=== PATIENT | male | born 1960 | race Caucasian/White ===

== ENCOUNTER 2024-06-26 22:36 | Inpatient (IN) | payer OTHER, SELFPAY ==
[2024-06-26] VITALS (12 sets, daily range): BP systolic 149–254; BP diastolic 81–143; BMI 30.6
[2024-06-26 18:42] LABS: % Basophils 0.5 % (0-2); % Eosinophils 1.2 % (0-6); % Immature Granulocytes 0.2 % (0-0.5); % Lymphocytes 10.9 % (20.5-51.1); % Monocytes 4.8 % (1.7-9.3); % Neutrophils 82.4 % (42.2-75.2); Absolute Eosinophils 0.1 10^3/uL (0-0.7); Absolute Lymphocytes 0.7 10^3/uL (1.2-3.4); Absolute Monocytes 0.3 10^3/uL (0.1-0.6); Absolute Neutrophils 5.3 10^3/uL (1.4-6.5); Hematocrit 38.5 % (39.0-52.0); Hemoglobin 13.7 g/dL (13.0-18.0); Mean Corp Hgb Conc. 35.6 g/dL (33.0-37.0); Mean Corpuscular Hgb 31.1 pg (27.0-31.0); Mean Corpuscular Volume 87.3 fL (80.0-94.0); Mean Platelet Volume 9.8 fL (7.4-10.4); Nucleated Red Blood Cells % 0 % (-); Platelet Count 185 10^3/uL (130-400); Red Blood Cell Count 4.41 10^6/uL (4.70-6.10); Red Cell Dist. Width 11.9 % (11.5-14.5); White Blood Cell Count 6.4 10^3/uL (4.8-10.8)
[2024-06-26 19:11] LABS: ALT (SGPT) 25 U/L (0-50); AST (SGOT) 26 U/L (17-59); Albumin 4.2 g/dl (3.5-5.0); Alkaline Phosphatase 86 U/L (38-126); Blood Urea Nitrogen 34 mg/dl (9-20); Calcium 9.1 mg/dl (8.4-10.2); Carbon Dioxide 27 mmol/L (22-30); Chloride 105 mmol/L (98-107); Glucose 104 mg/dl (70-99); Potassium 4.2 mmol/L (3.5-5.1); Sodium 142 mmol/L (135-145); Total Bilirubin 1.4 mg/dl (0.2-1.3); Total Protein 6.7 g/dl (6.3-8.2); eGFR 23.42
--- NOTE | 2024-06-26 19:12 | ED.GENMED ---
History of Present Illness
General
Chief Complaint: Breathing Problem
Source: patient
Exam Limitations: none
Time Seen by Provider: 06/26/24 18:41
History of Present Illness
History of Present Illness:
This is a 64 year old male that comes in with c/o feeling something in his chest this morning. States that he awoke at 3am and it was hard fro him to breath. States that his lungs were raspy. States that he had this before and when he got up it went
away. Today this seemed to last longer but then around 4:30-5am he felt better so he went to work. States that his calfs and feet have also been swelling lately. States that he is sitting all day. States that he feels nauseated and has a headache.
Denies any fever, chills, chest pain, abd pain, vomiting, diarrhea, dizziness, urinary burning.
Past History
Past History
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
Social History
Tobacco: Former smoker
Alcohol: Occasional
Personal:
Living: with family
Employment: Employed
Review of Systems
Review of Systems
All Other Systems: ROS reviewed and negative except as documented in HPI and ROS
Constitutional: Reports no symptoms; Denies fever or chills
EENT: Reports no symptoms
Respiratory: Reports trouble breathing; Denies cough
Cardiac: Reports no symptoms; Denies chest pain
ABD/GI: Reports nausea; Denies abdominal pain, vomiting or diarrhea
: Reports no symptoms; Denies dysuria, frequency or urgency
Musculoskeletal: Reports no symptoms
Skin: Reports no symptoms
Neurological: Reports headache; Denies dizzy
Psychiatric: Reports no symptoms
Phy Exam
General Physical Exam
General Presentation: no apparent distress
General age: appears stated age
General Skin: warm and dry
General Habitus: normal
General Mental: alert
General Hydration: dry mucous membranes
ENT Exam
ENT Exam: TM's normal, pharynx normal and neck supple
Eye Exam
Eye Exam: EOMI
Cardiovascular Exam
Cardiovascular Exam: regular rate/rhythm and normal peripheral pulses
Pulmonary Exam
Pulmonary Exam: lungs clear, no respiratory distress, no rales, chest non tender, no crackles, no rhonchi, no wheezing and no cough
Gastrointestinal Exam
Gastrointestinal Exam: normal bowel sounds, non tender, soft, no organomegaly, no pulsatile mass and non distended
Musculoskeletal Exam
Musculoskeletal Exam: full ROM and edema (+1 very slight pitting edema.)
Skin Exam
Skin Exam: normal color, warm/dry, no rash and no petechia
Psychiatric Exam
Psychiatric Exam: normal mood/affect
Scores
Heart Failure Risk
Heart Failure Risk Score: Not Applicable
Course
Orders/Labs/Results
Orders:
Orders
06/26/24 18:20
Electrocardiogram (*1) Urgent
Reason for Study: Shortness of Breath
CR Chest - 2 Views Urgent
Comment:
Reason For Exam: SOB
06/26/24 18:21
EKG- Treatment ONCE
06/26/24 18:29
Complete Blood Count/With Diff Urgent
Comprehensive Metabolic Panel Urgent
NT-proBNP Urgent
Troponin I Urgent
06/26/24 18:57
EKG [Electrocardiogram (*1)] Urgent
Reason for Study: Abnormal EKG
EKG- Treatment ONCE
06/26/24 19:08
Labetalol HCl [Trandate] 10 mg IV NOW STA
06/26/24 19:11
Amlodipine [Norvasc] 10 mg PO NOW STA
06/26/24 20:00
Labetalol HCl [Trandate] 10 mg IV NOW STA
06/26/24 20:02
Doxazosin Mesylate [Cardura] 8 mg PO NOW STA
06/26/24 21:26
Acetaminophen [Tylenol] 1,000 mg PO NOW STA
Nitroglycerin Ointment [Nitro-Bid] 1 inch TOPICAL NOW STA
06/26/24 21:29
Troponin I Urgent
06/26/24 21:51
Admit/Transfer Patient As Directed
Co-Sign Provider:
Level of Care: Inpatient admission
Assign to:: Telemetry
Physician / Group: Hospitalist
Diagnosis: Hypertensive crisis
Reason for Telemetry: Chest Pain syndromes
Date to Stop Telemetry: 06/28/24
Time to Stop Telemetry: 11:00
Reason for Hospitalization: Hypertensive crisis
Expected length of stay greater than two midnights?: Yes
ELOS- Estimated Length of Stay in days: 3
I certify the patient meets the requirements for IP care: Yes
PRN Pain Medication Management As Directed
May give lesser potent ordered pain med per pt: Yes
preference::
Protocol:: Medication orders for pain may be administered in a
manner that supports deferring to patient preference
when the pt is:
- Requesting an ordered lesser potent pain medication.
Least to most potent pain medications are defined
as: acetaminophen < NSAID < tramadol < opioids
(morphine, oxycodone, hydromorphone).
- Requesting a lesser dose of the same medication IF
ORDERED.
- Requesting a less intrusive route of administration
if both routes are prescribed by the provider (PO <
IV).
06/26/24 21:53
Code Status As Directed
Resuscitation Status: Full Code
06/26/24 22:00
Flush (0.9% Sodium Chloride) [Flush (Nss)] See Dose Instructions IV PER PROTOCOL
06/27/24 00:35
Electrocardiogram (*1) Q6H
Reason for Study: Chest Pain
Comment: at admission and Q3H for total of 3, to be done with each troponin
Doxazosin Mesylate [Cardura] 8 mg PO HS
Labetalol HCl [Trandate] 10 mg IV Q6HPRN PRN
06/27/24 00:35
Echo 2D MMode Color/Doppler Routine
Reason for Study: chest pain
CARDIOLOGY CONSULT Routine
Consulting Provider: Talat Ponce
Was physician already notified: No
Reason for consult: hypertensive emergency, elevated troponin
Consult Notification Routine
Specialty to Notify: Cardiology
Activity As Directed
Activity Level: With Assistance
INT (Intravenous Needle Therapy) As Directed
Comment: maintain peripheral IV access
Intake/ Output As Directed
Frequency: Per unit guidelines
Pneumatic Compression Sleeves As Directed
Type: Knee high
Vital Signs As Directed
Frequency: q4h
Weight As Directed
Frequency: Daily
DX Deep Vein Thrombosis Video Routine
06/27/24 00:54
Glycohemoglobin (HgbA1c) Routine
Troponin I Q3H
Comment: at admit & Q3H for 3 total including ED draws, obtain ECG with each level
06/27/24 03:35
Troponin I Q3H
Comment: at admit & Q3H for 3 total including ED draws, obtain ECG with each level
06/27/24 Breakfast
Cholesterol Lowering
At Your Request: Full Participation
Cholesterol Lowering: Sodium, 2 Gram
Complete Blood Count/No Diff IN AM
Comprehensive Metabolic Panel IN AM
US Renal Artery IN AM
Comment:
Reason For Exam: Hypertensive emergency
06/27/24 06:35
Electrocardiogram (*1) Q6H
Reason for Study: Chest Pain
Comment: at admission and Q3H for total of 3, to be done with each troponin
Troponin I Q3H
Comment: at admit & Q3H for 3 total including ED draws, obtain ECG with each level
06/27/24 08:00
Amlodipine [Norvasc] 10 mg PO DAILY
06/27/24 12:35
Electrocardiogram (*1) Q6H
Reason for Study: Chest Pain
Comment: at admission and Q3H for total of 3, to be done with each troponin
06/28/24 11:00
DC Protocol for Telemetry ONCE
Abnormal Lab Results
06/26/24 06/26/24
18:29 21:29
RBC 4.41 L 10^6/uL
(4.70-6.10)
Hct 38.5 L %
(39.0-52.0)
MCH 31.1 H pg
(27.0-31.0)
Absolute Lymphs (auto) 0.7 L 10^3/uL
(1.2-3.4)
Neutrophils % 82.4 H %
(42.2-75.2)
Lymphocytes % 10.9 L %
(20.5-51.1)
BUN 34 H mg/dl
(9-20)
Creatinine 2.9 H mg/dL
(0.7-1.3)
Glucose 104 H mg/dl
(70-99)
Total Bilirubin 1.4 H mg/dl
(0.2-1.3)
Troponin I 0.138 H* ng/ml 0.127 H* ng/ml
06/26/24 18:29
06/26/24 18:29
chronic renal insufficiency, Glucose nonfasting. Troponin elevated to 0.138 ( no other medication for comparison) , Pro-BNP 5250
Repeat Troponin 0.127
Vital Signs
Initial and Last Documented VS:
Initial Vital Signs
Temp Pulse Resp Pulse Ox
97.9 F 79 20 98
06/26/24 18:16 06/26/24 18:16 06/26/24 18:16 06/26/24 18:16
Last Documented Vital Signs
Temp Pulse Resp BP Pulse Ox
98.1 F 77 19 150/83 94
06/27/24 00:42 06/27/24 00:52 06/27/24 00:42 06/27/24 00:52 06/27/24 00:42
MDM/Problems Addressed
Differential Diagnosis Includes:
Hypertension, CHF
MDM/Problems Addressed:
This is a 64 year old male that comes in with c/o feeling like something rattling in his chest. States that he has ran out of his BP medication and he doesn't have a doctor right know. States that he is to see a Doctor on Tuesday.
will check labs. chest x-ray, will medicate for hypertension.
Repeat ECG: rate 73, NSR, Normal axis. Normal QRS, ST-T wave decreased in amplitude.
Back into see patient. Patient has been given IV Labetalol twice and given his medication that he would have normally taken at home and his BP remains elevated to 228/111. Will admit patient. hospitalist notified.
Chronic conditions affecting care: Kidney disease
Acute Exacerbation and/or Progression of Chronic Illness: Kidney disease
*Radiology
Radiology exam reviewed: preliminary read by ED provider (Chest- Negative for active disease. )
*Pulse Oximetry
Patient hypoxic: no
*EKG
Interpreted by ED Provider?: Yes
Heart Rate: 67
Rate: normal
Rhythm: sinus and PAC's
Hobbs: normal axis
Interval: normal interval
QRS Pattern: normal QRS
Ischemia: no ischemia
*Critical Care Note
Total Time (30-74mins, 75-104mins- exclusive of procedures): Not Applicable
ED Attending Note
-
Portions of this chart may have been created with voice recognition software.� Occasional wrong word or��sound alike� substitutions may have occurred due to the inherent limitations of voice recognition software.
Discharge Plan
Departure
Patient Disposition: Admit
Date of Disposition: 06/26/24
Time of Disposition: 20:56
Admit to: IMU
Presentation/result/management discussed w/ accepting MD/DO: Hospitalist
Patient with high blood pressure during this ER visit?: Yes
Condition: Good
Covid-19: Not Applicable
Discharge Problem:
Hypertensive crisis, Elevated troponin
Interventions
Interventions:
*Risk Screen - Suicide Last Done: 06/26/24 18:16
*General Assessment Last Done: 06/26/24 18:16
*Neglect/Abuse Screening Last Done: 06/26/24 18:16
ED- Fall Risk Assessment Last Done: 06/26/24 19:56
*ED COVID-19 Vaccine History Last Done: 06/26/24 19:55
*Nursing Disposition Last Done: 06/27/24 00:36
ED- Cardiac Assessment Last Done: 06/26/24 19:56
ED- Pulmonary Assessment Last Done: 06/26/24 19:56
Discharge Date and Time
Discharge Date/Time: 06/27/24 00:37
[2024-06-26 19:29] LABS: NT-proBNP 5250 pg/ml; Troponin I 0.138 ng/ml
[2024-06-26] MEDS: NORVASC 10 MG PO (19:47)
[2024-06-26] MEDS: TRANDATE 10 MG IV ×2 (19:48→21:34)
[2024-06-26] MEDS: CARDURA 8 MG PO (20:17)
--- NOTE | 2024-06-26 21:30 | HPS.HSE ---
Family Physician
-
Family Physician: NOT KNOW UNKNOWN - PT DOES
Chief Complaint
-
Respiratory difficulties
History of Present Illness
64 year old man came in c/o feeling something in his chest this morning. He awoke at 3am and had difficult breathing and felt that his lungs were raspy. He said that he had this before and on the past episode, when he got up it went away. Today this
episode seemed to last longer. Around 4:30-5am he felt better so he went to work. Today his calfs and feet were swollen. He has been sitting all day. When he came into the ED. he felt nauseated and has a headache. He denies fever, chills, chest
pain, abd pain, vomiting, diarrhea, dizziness, urinary burning. His BP when he came in was 248/119. Initial troponin was 0.138. He states that he has chronic kidney damage, but he does not know details. No previous visits in our system. He has
not taken his BP meds for several weeks.
Medical History
Past Medical History
Past Medical History: Reports Other
Additional Past Medical History:
Tonsilectomy,
Kidney surgery - 'aspergillus' (per patient) in kidney and they took a piece out
Essential HTN
Past Surgical History: Reports Other
Additional Past Surgical History:
See above
Social History
Alcohol: Occasional
Drug: None
Personal:
Living: With Family
Employment: Employed
Family History
Family History: Not pertinent
Allergies / Home Medications
Allergies reflects when Allergies were last updated in [employer].
Home Medications with original date entered in [employer]
Allergy/Medication List:
Allergies
Allergy/AdvReac Type Severity Reaction Status Date / Time
No Known Allergies Allergy Unverified 06/26/24 18:16
Home Medications
amlodipine 10 mg tablet 10 mg PO DAILY 06/26/24
doxazosin 4 mg tablet 8 mg PO HS 06/26/24
Review of Systems
-
History Source: Patient
A 12 point ROS was completed and negative except as noted: Yes
Physical Exam
Vital Signs
Vital Signs
Temp Pulse Resp BP Pulse Ox
97.9 F 68 20 248/119 96
06/26/24 18:16 06/26/24 20:17 06/26/24 20:00 06/26/24 20:17 06/26/24 20:15
Physical Exam
General: Well Developed, Well Nourished, No Apparent Distress, Comfortable, Conversant and Obese
HEENT: Nose Appears Normal and Ears Appear Normal
Respiratory: Clear
Cardiac: S1/S2 and Regular Rhythm
GI: Soft, Non Tender and Non Distended
Musculoskeletal: No Clubbing, No Cyanosis, Edema, Left Lower Extremity (trace) and Edema, Right Lower Extremity (trace)
Skin: Warm and Dry; No Rash
Neuro: Awake, Alert, Oriented and AO x 3
Psych: Calm
Laboratory Results
-
06/26/24 18:29
06/26/24 18:29
Laboratory Results
Total Bilirubin 1.4 mg/dl (0.2-1.3) H 06/26/24 18:29
AST 26 U/L (17-59) 06/26/24 18:29
ALT 25 U/L (0-50) 06/26/24 18:29
Alkaline Phosphatase 86 U/L (38-126) 06/26/24 18:29
Troponin I 0.138 ng/ml H* 06/26/24 18:29
Data Reviewed
-
Lab Data: Labs Reviewed by me
Impression/Plan
-
IMPRESSION:
64 man with hypertensive crisis, BP of 248/119 at initial eval. Significant findings:
BUN/Creat 34/2.9 (baseline not known)
TB 1.4
Troponin 0.138
PLAN:
1. Hypertensive crisis - improving. Oral BP meds started in ED, also nitro paste and labetalol given
Try to keep BP < 180 overnight, but does not need to get lower than 150
Use labetalol as needed while waiting for BP meds to work
Telemetry
Cycle troponins
2. BUN/Creat 34/2.9 - baseline not known
Try to find prior records
Recheck in am after BP is improved
Given that lungs are dry, will try other BP meds that are not diuretics
3. Total Bili 1.4 - cause not known, may be from congestion
Recheck in am, after BP is better controlled
4. Probable CHF, type not known, though diastolic is likely
Echo in am
5. Obesity - may exacerbate BP control
Outpatient follow up
Check for Diabetes
6. H/O kidney surgery
Check renal ultrasound
full code
VCD for DVTp
[2024-06-26 22:01] LABS: Troponin I 0.127 ng/ml
[2024-06-26] MEDS: TYLENOL 1000 MG PO (22:22)
[2024-06-26] MEDS: NITRO-BID 1 INCH TOPICAL (22:23)
[2024-06-27] VITALS (10 sets, daily range): BP systolic 133–163; BP diastolic 71–89; BMI 30.2
[2024-06-27] MEDS: CARDURA 8 MG PO ×2 (00:52→21:00)
[2024-06-27 01:54] LABS: Troponin I 0.109 ng/ml
[2024-06-27 04:47] LABS: Troponin I 0.093 ng/ml
[2024-06-27 06:38] LABS: Hematocrit 33.3 % (39.0-52.0); Hemoglobin 11.8 g/dL (13.0-18.0); Mean Corp Hgb Conc. 35.4 g/dL (33.0-37.0); Mean Corpuscular Hgb 30.9 pg (27.0-31.0); Mean Corpuscular Volume 87.2 fL (80.0-94.0); Mean Platelet Volume 9.8 fL (7.4-10.4); Platelet Count 167 10^3/uL (130-400); Red Blood Cell Count 3.82 10^6/uL (4.70-6.10); Red Cell Dist. Width 11.9 % (11.5-14.5); White Blood Cell Count 5.6 10^3/uL (4.8-10.8)
[2024-06-27 06:59] LABS: ALT (SGPT) 20 U/L (0-50); AST (SGOT) 22 U/L (17-59); Albumin 3.4 g/dl (3.5-5.0); Alkaline Phosphatase 65 U/L (38-126); Blood Urea Nitrogen 36 mg/dl (9-20); Calcium 8.5 mg/dl (8.4-10.2); Carbon Dioxide 25 mmol/L (22-30); Chloride 109 mmol/L (98-107); Estimated Creatinine Clearance 25 ml/min; Glucose 97 mg/dl (70-99); Potassium 3.9 mmol/L (3.5-5.1); Sodium 140 mmol/L (135-145); Total Bilirubin 1.4 mg/dl (0.2-1.3); Total Protein 5.6 g/dl (6.3-8.2); eGFR 23.42
[2024-06-27] MEDS: PROCARDIA XL (EXTENDED RELEASE) 60 MG PO (07:47)
--- NOTE | 2024-06-27 08:23 | CON.CAR ---
Addendum entered and electronically signed by Talat Ponce MD 06/27/24 10:19:
Patient seen and examined in collaboration with [facility] OPER[facility]; agree with below.
-65-year-old male with hypertension and CKD; admitted with hypertensive crisis.
-The patient ran out of his medications several weeks ago and has not followed up with his environmental services specialist in almost a decade.
-Echocardiogram today.
-Blood pressure improving; patient was changed from amlodipine to Procardia XL by primary hospitalist team.
-Continue current dose of doxazosin.
-Recommend Nephrology consultation as patient needs to reestablish care; his hypertension can likely just be managed by his primary hospitalist and [facility].
-Acute nonischemic myocardial injury in the setting of hypertensive crisis superimposed on CKD.
Original Note:
Consultation
Consultation Request
Date/Time Consultation Requested: 06/27/2434
Date/Time Consultation Performed: 06/27/24809
Requesting Provider: Dr. Obregon
Performing Provider: Quynh JANE for Dr. Ponce
Reason for Consultation: hypertensive emergency, abnormal troponin
Medical History
-
Chief Complaint: SOB
History of Present Illness:
64 y/o male with hypertension and kidney issues (unknown details, but per chart infection that required surgery) who is here for evaluation of waking up 2 nights ago with SOB and with raspy breathing sound- he felt better after about 1.5 hours. He
also has noticed some LE edema intermittently, but currently has none. He went to work and felt fine, but his suggested he come to the ER for evaluation. This also happened once a few weeks ago. On arrival, he was seen to be severely
hypertensive (240's-260's/110's-140's). He was given amlodipine 10 mg (home med that he ran out of) and doxazosin 8 mg (home med that he ran out of), as well as IV labetalol and topical nitroglycerin. BP has improved. Troponin is elevated 0.138,
then trended down. He denies any CP. Creatinine is 2.9- we don't know a baseline. EKG showed NSR with IC RBBB and evidence for LVH. ProBNP 5250, but no previous. Lungs clear and CXR without evidence for excess volume. He is in no distress at the
time of my assessment.
Past Medical History
Past Medical History: HTN and Other (kidney disease as above)
Social History
Tobacco: Former Smoker
Alcohol: Occasional
Drug: None
Family History
Family History: CAD (he thinks mom had WA at older age)
Allergies / Home Medications
Allergy/AdvReac Type Severity Reaction Status Date / Time
No Known Allergies Allergy Unverified 06/26/24 18:16
�Medication �Instructions �Recorded �Confirmed �Type
amlodipine 10 mg tablet 10 mg PO DAILY 06/26/24 06/26/24 History
doxazosin 4 mg tablet 8 mg PO HS 06/26/24 06/26/24 History
Review of Systems
-
History Source: Patient
All other systems: Negative unless noted
Respiratory: Trouble Breathing
Musculoskeletal: Edema
Physical Exam
Vital Signs
Temp Pulse Resp BP Pulse Ox
98 F 69 20 155/79 94
06/27/24 03:36 06/27/24 03:36 06/27/24 03:36 06/27/24 03:36 06/27/24 03:36
Lab Results
06/27/24 06:00
06/27/24 06:00
Troponin I Cancelled 06/27/24 06:35
Wgi-B-Fnqasnomebg Pept 5250 pg/ml 06/26/24 18:29
Physical Exam
General: Well Developed, Well Nourished and No Apparent Distress
HEENT: Normocephalic and Anicteric
Respiratory: Clear and Non Labored Respirations
Cardiac: Regular Rhythm
Musculoskeletal: No Edema
Skin: Warm and Dry
Neuro: AO x 3
Psych: Calm
Impression / Plan
-
Hypertensive emergency:
-this diagnosis is threat to life
-improving with medical therapy- now on Procardia, back on doxazosin- follow BP's with these changes
-we reviewed the importance of medication compliance and following up with medical providers
Abnormal troponin:
-denies any CP
-this is non-WA troponin elevation in setting of hypertensive emergency
-check echo, which is pending
Elevated creatinine:
-unknown baseline
-hx infection that required surgery, but details not know
-getting renal u/s this AM
-recommend nephrology c/s- he knows he needs to follow-up with nephro as OP as well- he has not recently seen
Obesity:
-would benefit from weight loss in the custodial
Elevated proBNP:
-in setting of abnormal renal function
-lungs clear, CXR no acute abnormalities
Data Reviewed
-
EKG: Tracing Personally Visualized and interpreted (SR with IC RBBB, LVH)
Radiology: Report Reviewed by me (CXR: No acute cardiopulmonary process.)
Medical Tests (Nuc Med, Echo etc): Other (ordered and pending)
Labs: Labs Reviewed by me
--- NOTE | 2024-06-27 10:07 | W.PN.HOSP.TC ---
Today's Communication/Plan
-
Adjust BP meds
Urinalysis, renal US
Add aspirin as secondary prevention
Add SQ heparin for DVT Prophylaxis
Monitor for urinary retention
will d/w nephrology
Assessment / Plan
Assessment / Plan
Physical Exam
General: Well Developed, Well Nourished, No Apparent Distress, Comfortable, Conversant and Obese
HEENT: Nose Appears Normal and Ears Appear Normal
Respiratory: Clear
Cardiac: S1/S2 and Regular Rhythm
GI: Soft, Non Tender and Non Distended
Musculoskeletal: No Clubbing, No Cyanosis, Edema, Left Lower Extremity (trace) and Edema, Right Lower Extremity (trace)
Skin: Warm and Dry; No Rash
Neuro: Awake, Alert, Oriented and AO x 3
Psych: Calm
#Hypertensive crisis -Resolved
- Primary hypertension, poorly controlled
We will stop amlodipine. Start the patient on nifedipine. Adjust medications as needed. Add as needed hydralazine.
Monitor blood pressure and adjust medications
#Acute nonischemic myocardial injury in the setting of hypertensive crisis superimposed on CKD.
No chest pain
Echocardiogram no wall motion abnormality
Appreciate cardiology input
# Suspect underlying chronic kidney disease stage IV
Patient has history of kidney disease but does not follow with v belt curer. He would like to establish care locally.
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
Stable 2.9. Will Control Blood Pressure.
Check urine analysis
Check renal ultrasound
Appreciate nephrology input
#Mild hyperbilirubinemia. No abdominal pain or nausea or vomiting
#Obesity - may exacerbate BP control
Hemoglobin A1c 5.4
full code
VCD for DVTp add subcu heparin
Total time spent to see the patient, examine the patient on the floor, review data and lab results, discuss the treatment plan with the patient, family, nursing staff around 55 minutes
Anticipated Discharge: 24 - 48 hours
Subjective/Interval History
-
Date of Service: June 27, 2024
No chest pain
No sob
Objective Data
-
Labs:
Laboratory Results
06/27/24
06:00
WBC 5.6
Hgb 11.8 L
Hct 33.3 L
Plt Count 167
Sodium 140
Potassium 3.9
Chloride 109 H
Carbon Dioxide 25
BUN 36 H
Creatinine 2.9 H
Glucose 97
Calcium 8.5
Total Bilirubin 1.4 H
AST 22
ALT 20
Alkaline Phosphatase 65
Vital Signs:
Vital Signs
Temp Pulse Resp BP Pulse Ox
97.7 F 74 18 163/89 93
06/27/24 07:30 06/27/24 07:30 06/27/24 07:30 06/27/24 07:30 06/27/24 08:00
I&O
06/26/24 06/27/24 06/28/24
06:59 06:59 06:59
Intake Total 0 / 0
Balance 0 / 0
[2024-06-27 11:32] LABS: Glycohemoglobin (HgbA1c) 5.4 % (4.0-5.6)
--- NOTE | 2024-06-27 12:39 | W.CON.NEPH ---
Consultation
-
Date/Time Consultation Requested: 06/27/24 1200p
Date/Time Consultation Performed: 06/27/24 1200p
Requesting Provider: Dr. Thompson
Performing Provider: Dr Nettles
Reason for Consultation: CKD unknown stage
Medical History
-
Chief Complaint: Chest discomfort
History of Present Illness:
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 It appears that he may have had fungal balls. These were reportedly the drained for diagnosis. He then was on
what appears to be a course of voriconazole by his memory. This did not appear to change the aspergillosis. He believes that his kidney function had otherwise stabilized. He was then lost to follow-up from a nephrologic standpoint. He does not
recall what his last creatinine was. He believes that his primary may have told him recently that his creatinine was increasing but does not recall the numbers. He does have hypertension which is typically controlled on a multidrug regimen but he
has not been on medicines for a few weeks though on admission was noted to be in hypertensive urgency. This was controlled with intravenous medications. He also reports that he has been feeling weaker over the last several weeks. He also believes
that he has had more foaminess in his urine.
Past Medical History
Aspergillosis bilateral kidneys, tonsillectomy, hypertension
Social History
Tobacco: Former Smoker
Alcohol: Occasional
Family History
Family History: Not Pertinent
Allergies / Home Medications
Allergy/AdvReac Type Severity Reaction Status Date / Time
No Known Allergies Allergy Unverified 06/26/24 18:16
�Medication �Instructions �Recorded �Confirmed �Type
amlodipine 10 mg tablet 10 mg PO DAILY Blood Pressure 06/26/24 06/26/24 History
doxazosin 4 mg tablet 8 mg PO HS Blood Pressure 06/26/24 06/26/24 History
Review of Systems
-
Chest discomfort, weakness
All other systems: Negative unless noted
Physical Exam
Vital Signs
Vital Signs
Temp Pulse Resp BP Pulse Ox
98.4 F 85 18 139/72 94
06/27/24 11:18 06/27/24 11:18 06/27/24 11:18 06/27/24 11:18 06/27/24 11:18
Lab Results
WBC 5.6 10^3/uL (4.8-10.8) 06/27/24 06:00
RBC 3.82 10^6/uL (4.70-6.10) L 06/27/24 06:00
Hgb 11.8 g/dL (13.0-18.0) L 06/27/24 06:00
Hct 33.3 % (39.0-52.0) L 06/27/24 06:00
Plt Count 167 10^3/uL (130-400) 06/27/24 06:00
Sodium 140 mmol/L (135-145) 06/27/24 06:00
Potassium 3.9 mmol/L (3.5-5.1) 06/27/24 06:00
Chloride 109 mmol/L (98-107) H 06/27/24 06:00
Carbon Dioxide 25 mmol/L (22-30) 06/27/24 06:00
BUN 36 mg/dl (9-20) H 06/27/24 06:00
Creatinine 2.9 mg/dL (0.7-1.3) H 06/27/24 06:00
eGFR 23.42 06/27/24 06:00
Glucose 97 mg/dl (70-99) 06/27/24 06:00
Calcium 8.5 mg/dl (8.4-10.2) 06/27/24 06:00
Wqp-E-Ytsdywmylsh Pept 5250 pg/ml 06/26/24 18:29
Albumin 3.4 g/dl (3.5-5.0) L 06/27/24 06:00
Physical Exam
Patient is awake alert oriented and in no distress. Mood and affect were pleasant, insight and judgment were good. Pupils are equal round and reactive to light, extraocular movements are intact, sclera were anicteric. Hearing was normal, ears and
nose are intact. Oropharynx was clear. Neck was supple with trachea midline and no thyromegaly. Heart was regular rate and rhythm without rubs. Lower extremities without edema. Lungs were clear to auscultation bilaterally and with normal
excursion. Abdomen was soft, nontender, with normal active bowel sounds, and no hepatosplenomegaly. Skin was without rash and with normal turgor.
Data Reviewed
-
Radiology: Image Personally Visualized and interpreted (Chest x-ray on June 26, 2024 by my reading shows no acute disease)
Ultrasound: Report Reviewed by me (Renal artery duplex on June 27, 2024 shows right kidney 9.8 cm, left kidney 9.4 cm, no significant renal artery stenosis)
Medical Tests (Nuc Med, Echo etc): Image Personally Visualized and interpreted (EKG on June 27, 2024 by my reading shows sinus rhythm incomplete right bundle branch block) and Report Reviewed by me (Echocardiogram on June 27, 2024 shows
ejection fraction 65% normal valves)
Labs: Labs Reviewed by me
Old Records: Requested
Assessment/Plan
-
Assessment
Hypertension/hypertensive urgency
HALINA
CKD stage unknown
Weakness
Elevated troponin
Plan
Elevated troponin likely from hypertensive urgency
Blood pressure is much improved on his outpatient regimen
Urinalysis pending
Renal ultrasound pending though duplex suggests symmetric kidneys. Ultrasound will hopefully show any sequelae of bilateral aspergillosis
Further evaluation pending urinalysis
Obtain records for older creatinines
[2024-06-27 14:42] LABS: Urine Albumin 3+ (Neg - Trace); Urine Bilirubin Negative (Negative); Urine Character Clear (Clear); Urine Color Yellow; Urine Glucose Negative (Negative); Urine Ketone Negative (Negative); Urine Leukocyte Negative (Negative); Urine Nitrite Negative (Negative); Urine Occult Blood Negative (Negative); Urine Urobilinogen Negative (Neg - 1+)
[2024-06-27 14:58] LABS: Urine Amorphous Seen; Urine Mucus Few
[2024-06-27 15:00] LABS: Urine Red Blood Cell 0-2 /HPF (0-2); Urine White Cell 0-2 /HPF (0-5)
--- NOTE | 2024-06-27 15:09 | CM ---
CM met with pt and yamile/Cindi
Pt resides with his spouse and mother in a 2SH with 1 NACHO
First floor set up
Pt is independent with his ADLs- denies use of DMEs
Works FT plus overtime operating heavy equipment
No financial insecurities
PCP- none, has new pt appt scheduled for 07/02 set up by his spouse, name of new PCP unknown
Leah- Norma Nichols
Discharge Disposition- home, likely no needs
[2024-06-28] VITALS (7 sets, daily range): BP systolic 135–179; BP diastolic 72–93; BMI 29.9
[2024-06-28] MEDS: APRESOLINE 5 MG PO (03:47)
[2024-06-28] MEDS: PROCARDIA XL (EXTENDED RELEASE) 60 MG PO (06:30)
[2024-06-28 07:31] LABS: Blood Urea Nitrogen 42 mg/dl (9-20); Calcium 8.7 mg/dl (8.4-10.2); Carbon Dioxide 25 mmol/L (22-30); Chloride 108 mmol/L (98-107); Estimated Creatinine Clearance 24 ml/min; Glucose 92 mg/dl (70-99); Potassium 4.5 mmol/L (3.5-5.1); Sodium 144 mmol/L (135-145); eGFR 21.62
--- NOTE | 2024-06-28 08:08 | W.PN.CD ---
Today's Communication / Plan
-
-Blood pressure improved, but remains suboptimally controlled.
-Will add Imdur 30 mg PO daily and hydralazine 25 mg PO BID (BID dosing will be used for now to try to improve patient compliance, at home as opposed to TID dosing).
-Continue Procardia XL 60 mg daily.
-Continue doxazosin 8 mg daily.
-Echocardiogram yesterday with normal LVEF and no significant valvulopathy.
Impression / Plan
-
Hypertensive emergency:
-Blood pressure improved, but remains suboptimally controlled.
-Will add Imdur 30 mg PO daily and hydralazine 25 mg PO BID (BID dosing will be used for now to try to improve patient compliance, at home as opposed to TID dosing).
-Continue Procardia XL 60 mg daily.
-Continue doxazosin 8 mg daily.
Abnormal troponin:
-Acute non-ischemic myocardial injury in the setting of hypertensive emergency.
-Echocardiogram yesterday with normal LVEF and no significant valvulopathy.
Elevated creatinine:
-unknown baseline
-hx infection that required surgery, but details not know
-Nephrology now following.
Obesity:
-Weight loss recommended.
Elevated proBNP:
-in setting of abnormal renal function
-lungs clear, CXR no acute abnormalities
Physical Exam
Vital Signs/Labs
Vital Signs
Temp Pulse Resp BP Pulse Ox
98.4 F 86 20 172/90 97
06/28/24 03:43 06/28/24 06:30 06/28/24 03:43 06/28/24 06:30 06/28/24 03:43
06/27/24 06/28/24 06/29/24
06:59 06:59 06:59
Actual Weight 82.27 kg 81.42 kg
06/27/24 06:00
06/28/24 05:55
06/26/24
18:29
Qjm-J-Ztciovyaddx Pept 5250
LAB Results
06/26/24 06/26/24 06/27/24
18:29 21:29 00:54
Troponin I 0.138 H* 0.127 H* 0.109 H*
06/27/24 06/27/24
04:14 06:35
Troponin I 0.093 H* Cancelled
Physical Exam
Constitutional: No acute distress and Comfortable
EENT: Anicteric
Cardiovascular: Rhythm & rate is regular, Pedal edema is absent, Systolic murmur absent and S1S2 is normal
Respiratory: Respiratory effort normal and Lungs clear to auscul.
GI: Soft
Neuro/Psych: AO x 3
Other: Skin (Warm, dry, intact)
Data Reviewed
-
Date of Service: June 28, 2024
EKG: Tracing Personally Visualized and interpreted (Telemetry: Sinus rhythm)
Echo: Report Reviewed by me ( LVEF 65-70%; no significant valve disease)
Labs: Labs Reviewed by me
[2024-06-28] MEDS: LOW STRENGTH ASPIRIN 81 MG PO (08:45)
[2024-06-28] MEDS: APRESOLINE 25 MG PO ×2 (08:45→20:31)
[2024-06-28] MEDS: IMDUR (EXTENDED RELEASE) 30 MG PO (08:45)
[2024-06-28] MEDS: PROCARDIA XL (EXTENDED RELEASE) 30 MG PO (08:47)
--- NOTE | 2024-06-28 10:52 | W.PN.NEPH.PH ---
Today's Communication / Plan
-
Up/c
Assessment/Plan
-
Assessment
Hypertension/hypertensive urgency
HALINA
CKD stage unknown
Weakness
Elevated troponin
Plan
continue BP meds as is
check urine prot/creat ratio
mildly asymmetric kidneys, though does not explain current function
await records for older creatinines
-
-
Date of Service: June 28, 2024
CC / HPI / ROS
-
Chief Complaint:
HALINA
History of Present Illness:
HALINA/Cr stable 3.1
BP high stable
protein in urinalysis
Review of Systems:
no CP/SOB
Labs
-
Labs:
WBC 5.6 10^3/uL (4.8-10.8) 06/27/24 06:00
RBC 3.82 10^6/uL (4.70-6.10) L 06/27/24 06:00
Hgb 11.8 g/dL (13.0-18.0) L 06/27/24 06:00
Hct 33.3 % (39.0-52.0) L 06/27/24 06:00
Plt Count 167 10^3/uL (130-400) 06/27/24 06:00
Sodium 144 mmol/L (135-145) 06/28/24 05:55
Potassium 4.5 mmol/L (3.5-5.1) 06/28/24 05:55
Chloride 108 mmol/L (98-107) H 06/28/24 05:55
Carbon Dioxide 25 mmol/L (22-30) 06/28/24 05:55
BUN 42 mg/dl (9-20) H 06/28/24 05:55
Creatinine 3.1 mg/dL (0.7-1.3) H 06/28/24 05:55
eGFR 21.62 06/28/24 05:55
Glucose 92 mg/dl (70-99) 06/28/24 05:55
Calcium 8.7 mg/dl (8.4-10.2) 06/28/24 05:55
Nrf-H-Tvuuhrdkltz Pept 5250 pg/ml 06/26/24 18:29
Albumin 3.4 g/dl (3.5-5.0) L 06/27/24 06:00
Physical Exam
-
Vital Signs:
Vital Signs
Temp Pulse Resp BP Pulse Ox
98 F 89 18 179/91 97
06/28/24 08:41 06/28/24 08:45 06/28/24 08:41 06/28/24 08:45 06/28/24 08:41
Cardiovascular:: Regular rate and rhythm
Respiratory:: Bilateral: CTA
Lung Excursion:: Normal
Abdomen:: Nontender and Soft
Bowel Sounds:: Normal
Extremity Edema:: None: Bilateral:
--- NOTE | 2024-06-28 11:40 | CM ---
Nephrology and cardiology involved.
Independent FUNERAL SERVICE PRACTITIONER/EMBALMER.
Declined VN at dc.
PLAN Home no anticipated needs
--- NOTE | 2024-06-28 12:16 | W.PN.HOSP.TC ---
Today's Communication/Plan
-
Check BMP
Adjust meds as needed
Assessment / Plan
Assessment / Plan
Physical Exam
General: Well Developed, Well Nourished, No Apparent Distress, Comfortable, Conversant and Obese
HEENT: Nose Appears Normal and Ears Appear Normal
Respiratory: Clear
Cardiac: S1/S2 and Regular Rhythm
GI: Soft, Non Tender and Non Distended
Musculoskeletal: No Clubbing, No Cyanosis, Edema, Left Lower Extremity (trace) and Edema, Right Lower Extremity (trace)
Skin: Warm and Dry; No Rash
Neuro: Awake, Alert, Oriented and AO x 3
Psych: Calm
#Hypertensive crisis -Resolved
- Primary hypertension, poorly controlled
Still uncontrolled earlier today
Stopped Amlodipine. Started the patient on nifedipine. Adjust medications as needed. Added BID hydralazine with Imdur.
Monitored blood pressure and adjust medications
#Acute nonischemic myocardial injury in the setting of hypertensive crisis superimposed on CKD.
No chest pain
Echocardiogram no wall motion abnormality
Appreciate cardiology input
# Suspect underlying chronic kidney disease stage IV
Creatinine went up to 3.1 from 2.9
Patient has history of kidney disease but does not follow with can sorter. He would like to establish care locally.
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
Urine analysis showed + albumin
Renal ultrasound Showed asymmetric left renal cortical atrophy. Generalized renal cortical echotexture, suggesting underlying medical renal disease. No shadowing calculus or hydronephrosis, bilaterally.
Appreciate nephrology input
#Mild hyperbilirubinemia. No abdominal pain or nausea or vomiting
#Obesity - may exacerbate BP control
Hemoglobin A1c 5.4
full code
VCD for DVTp add subcu heparin
Total time spent to see the patient, examine the patient on the floor, review data and lab results, discuss the treatment plan with the patient, family, nursing staff around 55 minutes
Anticipated Discharge: Within 24 hours
Subjective/Interval History
-
Date of Service: June 28, 2024
No chest pain
No sob
Objective Data
-
Labs:
Laboratory Results
06/28/24
05:55
Sodium 144
Potassium 4.5
Chloride 108 H
Carbon Dioxide 25
BUN 42 H
Creatinine 3.1 H
Glucose 92
Calcium 8.7
Vital Signs:
Vital Signs
Temp Pulse Resp BP Pulse Ox
98 F 97 18 135/72 97
06/28/24 12:00 06/28/24 12:00 06/28/24 12:00 06/28/24 12:00 06/28/24 12:00
I&O
06/27/24 06/28/24 06/29/24
06:59 06:59 06:59
Intake Total 0 / 0 900 / 900
Balance 0 / 0 900 / 900
[2024-06-28 15:59] LABS: Protein/creatinine Ratio 3.7; Urine Protein 1073 mg/dl
[2024-06-28] MEDS: CARDURA 8 MG PO (20:32)
[2024-06-29] VITALS (9 sets, daily range): BP systolic 138–194; BP diastolic 67–100; PULSE 71–96; BMI 31.0
[2024-06-29 05:36] LABS: Blood Urea Nitrogen 50 mg/dl (9-20); Calcium 8.7 mg/dl (8.4-10.2); Carbon Dioxide 26 mmol/L (22-30); Chloride 106 mmol/L (98-107); Estimated Creatinine Clearance 22 ml/min; Glucose 92 mg/dl (70-99); Potassium 4.5 mmol/L (3.5-5.1); Sodium 141 mmol/L (135-145); eGFR 20.06
[2024-06-29] MEDS: PROCARDIA XL (EXTENDED RELEASE) 90 MG PO (07:27)
[2024-06-29] MEDS: LOW STRENGTH ASPIRIN 81 MG PO (07:28)
[2024-06-29] MEDS: APRESOLINE 25 MG PO ×3 (07:28→21:19)
[2024-06-29] MEDS: IMDUR (EXTENDED RELEASE) 30 MG PO (07:28)
--- NOTE | 2024-06-29 09:10 | W.PN.HOSP.TC ---
Today's Communication/Plan
-
f/w nephrology recommendation
Check orthostatic Bp
Assessment / Plan
Assessment / Plan
Physical Exam
General: Well Developed, Well Nourished, No Apparent Distress, Comfortable, Conversant and Obese
HEENT: Nose Appears Normal and Ears Appear Normal
Respiratory: Clear
Cardiac: S1/S2 and Regular Rhythm
GI: Soft, Non Tender and Non Distended
Musculoskeletal: No Clubbing, No Cyanosis, Edema, Left Lower Extremity (trace) and Edema, Right Lower Extremity (trace)
Skin: Warm and Dry; No Rash
Neuro: Awake, Alert, Oriented and AO x 3
Psych: Calm
#Hypertensive crisis -Resolved
- Primary hypertension, poorly controlled in OP setting
Still uncontrolled earlier today but seems to improve with meds. He had Sinus tachy upon ambulation, EKG SR, will check orthostatic bp
Stopped Amlodipine. Started the patient on nifedipine. Adjust medications as needed. Added BID hydralazine with Imdur.
Monitored blood pressure and adjust medications
#Acute nonischemic myocardial injury in the setting of hypertensive crisis superimposed on CKD.
No chest pain
Echocardiogram no wall motion abnormality
Appreciate cardiology input
# Suspect underlying chronic kidney disease stage IV
Creatinine went up to 3.3 from 2.9
Creatinine 1.7 in 2021
Patient has history of kidney disease but does not follow with gaming associate. He would like to establish care locally.
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
Urine analysis showed + albumin
Renal ultrasound Showed asymmetric left renal cortical atrophy. Generalized renal cortical echotexture, suggesting underlying medical renal disease. No shadowing calculus or hydronephrosis, bilaterally.
Appreciate nephrology input
#Mild hyperbilirubinemia. No abdominal pain or nausea or vomiting
#Obesity - may exacerbate BP control
Hemoglobin A1c 5.4
full code
VCD for DVTp add subcu heparin
Total time spent to see the patient, examine the patient on the floor, review data and lab results, discuss the treatment plan with the patient, family, nursing staff around 55 minutes
Anticipated Discharge: 24 - 48 hours
Subjective/Interval History
-
Date of Service: June 29, 2024
No chest pain
No sob
Objective Data
-
Labs:
Laboratory Results
06/29/24
04:29
Sodium 141
Potassium 4.5
Chloride 106
Carbon Dioxide 26
BUN 50 H
Creatinine 3.3 H
Glucose 92
Calcium 8.7
Vital Signs:
Vital Signs
Temp Pulse Resp BP Pulse Ox
97.8 F 89 18 165/92 98
06/29/24 07:10 06/29/24 07:10 06/29/24 07:10 06/29/24 08:18 06/29/24 07:10
I&O
06/28/24 06/29/24 06/30/24
06:59 06:59 06:59
Intake Total 900 / 900
Balance 900 / 900
--- NOTE | 2024-06-29 11:25 | W.PN.NEPH.PH ---
Today's Communication / Plan
-
Hold aspirin
Prepare for renal biopsy early next week
Titrate up hydralazine to 3 times daily
Assessment/Plan
-
Assessment
Hypertension/hypertensive urgency
HALINA
CKD stage unknown
Weakness
Elevated troponin
Plan
continue BP meds as is
Creatinine up to 3.3
check urine prot/creat ratio: 3.7grams
mildly asymmetric kidneys, though does not explain current function
Records from May 2023 reviewed: Creatinine was 1.75 with urinalysis of 3+ proteinuria
Underlying kidney disease is rapidly advancing
I will obtain serologies but plan on renal biopsy early next week
We will suspend aspirin
Case discussed with patient
-
-
Date of Service: June 29, 2024
CC / HPI / ROS
-
Chief Complaint:
HALINA
History of Present Illness:
HALINA/Cr up to 3.3
BP high stable
3.7 g of proteinuria
Review of Systems:
no CP/SOB
Nonoliguric
Labs
-
Labs:
WBC 5.6 10^3/uL (4.8-10.8) 06/27/24 06:00
RBC 3.82 10^6/uL (4.70-6.10) L 06/27/24 06:00
Hgb 11.8 g/dL (13.0-18.0) L 06/27/24 06:00
Hct 33.3 % (39.0-52.0) L 06/27/24 06:00
Plt Count 167 10^3/uL (130-400) 06/27/24 06:00
Sodium 141 mmol/L (135-145) 06/29/24 04:29
Potassium 4.5 mmol/L (3.5-5.1) 06/29/24 04:29
Chloride 106 mmol/L (98-107) 06/29/24 04:29
Carbon Dioxide 26 mmol/L (22-30) 06/29/24 04:29
BUN 50 mg/dl (9-20) H 06/29/24 04:29
Creatinine 3.3 mg/dL (0.7-1.3) H 06/29/24 04:29
eGFR 20.06 06/29/24 04:29
Glucose 92 mg/dl (70-99) 06/29/24 04:29
Calcium 8.7 mg/dl (8.4-10.2) 06/29/24 04:29
Wqw-V-Mryafdqbqcn Pept 5250 pg/ml 06/26/24 18:29
Albumin 3.4 g/dl (3.5-5.0) L 06/27/24 06:00
Physical Exam
-
Vital Signs:
Vital Signs
Temp Pulse Resp BP Pulse Ox
97.8 F 78 20 154/83 98
06/29/24 11:17 06/29/24 11:17 06/29/24 11:17 06/29/24 11:17 06/29/24 11:17
Cardiovascular:: Regular rate and rhythm
Respiratory:: Bilateral: CTA
Lung Excursion:: Normal
Abdomen:: Nontender and Soft
Bowel Sounds:: Normal
Extremity Edema:: None: Bilateral:
--- NOTE | 2024-06-29 17:16 | CM ---
Not ready for dc.
Set up kidney bx Tuesday.
Changed BP meds.
PLAN Home declined VN
[2024-06-29] MEDS: CARDURA 8 MG PO (21:18)
[2024-06-30] VITALS (9 sets, daily range): BP systolic 128–198; BP diastolic 68–104; BMI 31.0
[2024-06-30] MEDS: APRESOLINE 5 MG IV (00:28)
[2024-06-30 06:00] LABS: Blood Urea Nitrogen 45 mg/dl (9-20); Calcium 8.7 mg/dl (8.4-10.2); Carbon Dioxide 25 mmol/L (22-30); Chloride 105 mmol/L (98-107); Estimated Creatinine Clearance 24 ml/min; Glucose 89 mg/dl (70-99); Potassium 4.4 mmol/L (3.5-5.1); Sodium 140 mmol/L (135-145); eGFR 21.62
[2024-06-30] MEDS: IMDUR (EXTENDED RELEASE) 30 MG PO (07:39)
[2024-06-30] MEDS: PROCARDIA XL (EXTENDED RELEASE) 90 MG PO (07:39)
[2024-06-30] MEDS: APRESOLINE 25 MG PO ×3 (07:40→22:09)
--- NOTE | 2024-06-30 09:47 | W.PN.CD ---
Today's Communication / Plan
-
-
Defer further HTN management to nephrology
Will ask pt to see Dr. Ponce in follow up to consider outpatient stress test
Cardiology will sign off. Our office will reach out to patient
Impression / Plan
-
HTN emergency, severe HTN on admit
- BP still elevated, but improving
- Meds limited by significant CKD
- Will defer to nephrology about adding diuretic, MRA or RAAS inhibitor for additional BP control
Elevated troponin, peak 0.138 (admit trop)
- from non-ischemic myocardial injury in the setting of hypertensive emergency and renal insuf
- Echo with normal LVEF and no significant valvulopathy and EKG without changes of UT
Progressive CKD with proteinuria
Obesity, BMI 31 kg
Elevated proBNP, 5250, associated with renal insuf
- Had dyspnea on admit with severe HTN
- Stage 1 diastolic dysfxn
- Certainly at risk for HFpEF
Subjective:
No CP or dyspnea
Physical Exam
Vital Signs/Labs
Vital Signs
Temp Pulse Resp BP Pulse Ox
97.6 F 82 18 167/96 97
06/30/24 08:07 06/30/24 08:07 06/30/24 08:07 06/30/24 08:07 06/30/24 08:07
06/29/24 06/30/24 07/01/24
06:59 06:59 06:59
Actual Weight 84.425 kg 84.368 kg
06/27/24 06:00
06/30/24 04:20
PT 13.0 Sec (11.4-14.6) 06/30/24 04:20
INR 1.00 06/30/24 04:20
06/26/24
18:29
Wkj-M-Nddpbpprsnv Pept 5250
Physical Exam
Constitutional: No acute distress
EENT: Anicteric
Cardiovascular: Rhythm & rate is regular and Pedal edema is absent
Respiratory: Respiratory effort normal and Lungs clear to auscul.
GI: Soft and Distention absent
Neuro/Psych: AO x 3
Data Reviewed
-
Date of Service: June 30, 2024
--- NOTE | 2024-06-30 10:18 | W.PN.HOSP.TC ---
Today's Communication/Plan
-
Add Coreg
Would avoid checking vital during the night to let pt sleep
Assessment / Plan
Assessment / Plan
Physical Exam
General: Well Developed, Well Nourished, No Apparent Distress, Comfortable, Conversant and Obese
HEENT: Nose Appears Normal and Ears Appear Normal
Respiratory: Clear
Cardiac: S1/S2 and Regular Rhythm
GI: Soft, Non Tender and Non Distended
Musculoskeletal: No Clubbing, No Cyanosis, Edema, Left Lower Extremity (trace) and Edema, Right Lower Extremity (trace)
Skin: Warm and Dry; No Rash
Neuro: Awake, Alert, Oriented and AO x 3
Psych: Calm
#Hypertensive crisis -Resolved
- Primary hypertension, poorly controlled in OP setting
Still uncontrolled earlier today but seems to improve with meds. 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
Stopped Amlodipine. Started the patient on nifedipine.
C/W BID hydralazine with Imdur.
Monitored blood pressure and adjust medications
#Acute nonischemic myocardial injury in the setting of hypertensive crisis superimposed on CKD.
No chest pain
Echocardiogram no wall motion abnormality
Appreciate cardiology input
# Suspect underlying chronic kidney disease stage IV
Creatinine at 3.1 , seems stable in last 24 hours.
Creatinine 1.7 in 2021
Patient has history of kidney disease but does not follow with [employer]. He would like to establish care locally.
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
Urine analysis showed + albumin
Renal ultrasound Showed asymmetric left renal cortical atrophy. Generalized renal cortical echotexture, suggesting underlying medical renal disease. No shadowing calculus or hydronephrosis, bilaterally.
Appreciate nephrology input
#Mild hyperbilirubinemia. No abdominal pain or nausea or vomiting
#Obesity - may exacerbate BP control
Hemoglobin A1c 5.4
full code
VCD for DVTp add subcu heparin
Total time spent to see the patient, examine the patient on the floor, review data and lab results, discuss the treatment plan with the patient, family, nursing staff around 55 minutes
Anticipated Discharge: 24 - 48 hours
Subjective/Interval History
-
Date of Service: June 30, 2024
No complaints
No chest pain or sob
Objective Data
-
Labs:
Laboratory Results
06/30/24
04:20
PT 13.0
INR 1.00
Sodium 140
Potassium 4.4
Chloride 105
Carbon Dioxide 25
BUN 45 H
Creatinine 3.1 H
Glucose 89
Calcium 8.7
Vital Signs:
Vital Signs
Temp Pulse Resp BP Pulse Ox
97.6 F 82 18 167/96 97
06/30/24 08:07 06/30/24 08:07 06/30/24 08:07 06/30/24 08:07 06/30/24 08:07
I&O
06/29/24 06/30/24 07/01/24
06:59 06:59 06:59
Intake Total 1080 / 1080
Balance 1080 / 1080
--- NOTE | 2024-06-30 11:47 | W.PN.NEPH.PH ---
Today's Communication / Plan
-
Follow BMP
Serologies to be obtained
Assessment/Plan
-
Assessment
Hypertension/hypertensive urgency
HALINA
CKD stage unknown
Weakness
Elevated troponin
Plan
Increase hydralazine to 50 mg 3 times daily in addition to nifedipine doxazosin and carvedilol if bp remains elevated
Creatinine down to 3.1
check urine prot/creat ratio: 3.7grams
mildly asymmetric kidneys, though does not explain current function
Records from May 2023 reviewed: Creatinine was 1.75 with urinalysis of 3+ proteinuria
Underlying kidney disease is rapidly advancing
I will obtain serologies but plan on renal biopsy early next week
We will suspend aspirin (was held today)
Case discussed with patient
-
-
Date of Service: June 30, 2024
CC / HPI / ROS
-
Chief Complaint:
HALINA
History of Present Illness:
HALINA/Cr to 3.1
BP high stable
3.7 g of proteinuria
Review of Systems:
no CP/SOB
Nonoliguric
Labs
-
Labs:
WBC 5.6 10^3/uL (4.8-10.8) 06/27/24 06:00
RBC 3.82 10^6/uL (4.70-6.10) L 06/27/24 06:00
Hgb 11.8 g/dL (13.0-18.0) L 06/27/24 06:00
Hct 33.3 % (39.0-52.0) L 06/27/24 06:00
Plt Count 167 10^3/uL (130-400) 06/27/24 06:00
Sodium 140 mmol/L (135-145) 06/30/24 04:20
Potassium 4.4 mmol/L (3.5-5.1) 06/30/24 04:20
Chloride 105 mmol/L (98-107) 06/30/24 04:20
Carbon Dioxide 25 mmol/L (22-30) 06/30/24 04:20
BUN 45 mg/dl (9-20) H 06/30/24 04:20
Creatinine 3.1 mg/dL (0.7-1.3) H 06/30/24 04:20
eGFR 21.62 06/30/24 04:20
Glucose 89 mg/dl (70-99) 06/30/24 04:20
Calcium 8.7 mg/dl (8.4-10.2) 06/30/24 04:20
Uxd-B-Rymjpkunobd Pept 5250 pg/ml 06/26/24 18:29
Albumin 3.4 g/dl (3.5-5.0) L 06/27/24 06:00
Physical Exam
-
Vital Signs:
Vital Signs
Temp Pulse Resp BP Pulse Ox
97.6 F 82 18 167/96 97
06/30/24 08:07 06/30/24 08:07 06/30/24 08:07 06/30/24 08:07 06/30/24 08:07
Cardiovascular:: Regular rate and rhythm
Respiratory:: Bilateral: CTA
Lung Excursion:: Normal
Abdomen:: Nontender and Soft
Bowel Sounds:: Normal
Extremity Edema:: None: Bilateral:
[2024-06-30] MEDS: COREG 3.125 MG PO (20:57)
[2024-06-30] MEDS: CARDURA 8 MG PO (22:09)
[2024-07-01] VITALS (8 sets, daily range): BP systolic 123–195; BP diastolic 68–100; PULSE 68–73; BMI 30.7
[2024-07-01] MEDS: APRESOLINE 5 MG IV (00:08)
[2024-07-01] MEDS: TRANDATE 5 MG IV (02:01)
[2024-07-01] MEDS: COREG 3.125 MG PO ×2 (04:24→19:21)
[2024-07-01] MEDS: APRESOLINE 50 MG PO ×3 (04:25→20:41)
[2024-07-01] MEDS: PROCARDIA XL (EXTENDED RELEASE) 90 MG PO (04:26)
[2024-07-01] MEDS: IMDUR (EXTENDED RELEASE) 30 MG PO (04:26)
--- NOTE | 2024-07-01 04:34 | PTCARENOTE ---
0400: pt BP 180/88 and HR 65. pt aysmptomatic. [place] VETERINARY ASSISTANT TECHNICIAN made aware, ordered to give 0800 scheduled coreg 3.125mg PO, imdur 30 mg PO, procardia Xl 90 mg PO, and hydralazine 50 mg PO. given per order.
0145: pt BP 188/98 and HR 66 after 5 mg IV hydralazine given. pt aysmptomatic. [place] VETERINARY ASSISTANT TECHNICIAN aware, ordered to give 5 mg IV labetalol.
0008: pt BP 198/104. pt asymptomatic, denies headache and pain, urinating without issue. [place] VETERINARY ASSISTANT TECHNICIAN made aware. ordered for 5 mg IV hydralazine.
[2024-07-01 07:00] LABS: Hematocrit 35.1 % (39.0-52.0); Hemoglobin 12.1 g/dL (13.0-18.0); Mean Corp Hgb Conc. 34.5 g/dL (33.0-37.0); Mean Corpuscular Volume 87.1 fL (80.0-94.0); Mean Platelet Volume 10.3 fL (7.4-10.4); Platelet Count 196 10^3/uL (130-400); Red Blood Cell Count 4.03 10^6/uL (4.70-6.10); White Blood Cell Count 5.5 10^3/uL (4.8-10.8)
[2024-07-01 07:24] LABS: Blood Urea Nitrogen 46 mg/dl (9-20); Calcium 9.1 mg/dl (8.4-10.2); Carbon Dioxide 24 mmol/L (22-30); Chloride 103 mmol/L (98-107); Estimated Creatinine Clearance 26 ml/min; Glucose 89 mg/dl (70-99); Potassium 4.4 mmol/L (3.5-5.1); Sodium 138 mmol/L (135-145); eGFR 23.42
[2024-07-01 07:58] LABS: Anti Streptolysin Negative (Negative)
[2024-07-01] MEDS: FLUSH (NSS) 1 FLUSH IV (08:00)
--- NOTE | 2024-07-01 09:00 | W.PN.HOSP.TC ---
Today's Communication/Plan
-
Plan for renal Biopsy on Tuesday
Pt refuses SQ Heparin, dc it
Assessment / Plan
Assessment / Plan
Physical Exam
General: Well Developed, Well Nourished, No Apparent Distress, Comfortable, Conversant and Obese
HEENT: Nose Appears Normal and Ears Appear Normal
Respiratory: Clear
Cardiac: S1/S2 and Regular Rhythm
GI: Soft, Non Tender and Non Distended
Musculoskeletal: No Clubbing, No Cyanosis, Edema, Left Lower Extremity (trace) and Edema, Right Lower Extremity (trace)
Skin: Warm and Dry; No Rash
Neuro: Awake, Alert, Oriented and AO x 3
Psych: Calm
#Hypertensive crisis -Resolved
- Primary hypertension, poorly controlled in OP setting
Still uncontrolled earlier today but seems to improve with meds. He had Sinus tachy upon ambulation, EKG SR, negative orthostatic hypotension, d/w qc lab technician, started Coreg
Stopped Amlodipine. Started the patient on nifedipine.
C/W BID hydralazine with Imdur.
Monitored blood pressure and adjust medications
#Acute nonischemic myocardial injury in the setting of hypertensive crisis superimposed on CKD.
No chest pain
Echocardiogram no wall motion abnormality
Appreciate cardiology input
# Suspect underlying chronic kidney disease stage IV
Creatinine at 2.9 , seems to stabilize
d/w nephrology , plan for renal biopsy on Tuesday
Creatinine 1.7 in 2021
Patient has history of kidney disease but does not follow with warp scouring vat tender. He would like to establish care locally.
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
Urine analysis showed + albumin
Renal ultrasound Showed asymmetric left renal cortical atrophy. Generalized renal cortical echotexture, suggesting underlying medical renal disease. No shadowing calculus or hydronephrosis, bilaterally.
Appreciate nephrology input
#Mild hyperbilirubinemia. No abdominal pain or nausea or vomiting
#Obesity - may exacerbate BP control
Hemoglobin A1c 5.4
full code
VCD for DVTp add subcu heparin, he refuses heparin
Total time spent to see the patient, examine the patient on the floor, review data and lab results, discuss the treatment plan with the patient, nephrology, family, nursing staff around 55 minutes
Anticipated Discharge: 24 - 48 hours
Subjective/Interval History
-
Date of Service: July 01, 2024
No chest pain
No sob
Objective Data
-
Labs:
Laboratory Results
07/01/24
05:45
WBC 5.5
Hgb 12.1 L
Hct 35.1 L
Plt Count 196
Sodium 138
Potassium 4.4
Chloride 103
Carbon Dioxide 24
BUN 46 H
Creatinine 2.9 H
Glucose 89
Calcium 9.1
Vital Signs:
Vital Signs
Temp Pulse Resp BP Pulse Ox
97.6 F 82 16 123/74 98
07/01/24 07:55 07/01/24 07:55 07/01/24 07:55 07/01/24 07:55 07/01/24 07:58
I&O
06/30/24 07/01/24 07/02/24
06:59 06:59 06:59
Intake Total 1080 / 1080 960 / 960
Balance 1080 / 1080 960 / 960
--- NOTE | 2024-07-01 10:59 | CM ---
Patient seen at bedside. Patient states he is doing a bit better, plan is still for biopsy on Tuesday but it is now uncertain per patient. CM will continue to follow for discharge planning needs.
Plan; home with family, new PCP no VN at this time
--- NOTE | 2024-07-01 12:06 | W.PN.NEPH.PH ---
Today's Communication / Plan
-
Obtain renal biopsy tomorrow
Titrate up hydralazine 50 mg 3 times daily for hypertension
Assessment/Plan
-
Assessment
Hypertension/hypertensive urgency
HALINA
CKD stage unknown
Weakness
Elevated troponin
Plan
Increase hydralazine to 50 mg 3 times daily in addition to nifedipine doxazosin and carvedilol for hypertension
Creatinine down to 2.9 (admission creatinine)
checked urine prot/creat ratio: 3.7grams
mildly asymmetric kidneys, though does not explain current function
Records from May 2023 reviewed: Creatinine was 1.75 with urinalysis of 3+ proteinuria
Underlying kidney disease is rapidly advancing
obtained serologies but plan on renal biopsy tomorrow
ASA has been suspended (he was only on a baby aspirin a couple times last week)
Case discussed with patient
-
-
Date of Service: July 01, 2024
CC / HPI / ROS
-
Chief Complaint:
HALINA
History of Present Illness:
HALINA/Cr to 2.9
BP high
3.7 g of proteinuria
Review of Systems:
no CP/SOB
Nonoliguric
Nonoliguric
Labs
-
Labs:
WBC 5.5 10^3/uL (4.8-10.8) 07/01/24 05:45
RBC 4.03 10^6/uL (4.70-6.10) L 07/01/24 05:45
Hgb 12.1 g/dL (13.0-18.0) L 07/01/24 05:45
Hct 35.1 % (39.0-52.0) L 07/01/24 05:45
Plt Count 196 10^3/uL (130-400) 07/01/24 05:45
Sodium 138 mmol/L (135-145) 07/01/24 05:45
Potassium 4.4 mmol/L (3.5-5.1) 07/01/24 05:45
Chloride 103 mmol/L (98-107) 07/01/24 05:45
Carbon Dioxide 24 mmol/L (22-30) 07/01/24 05:45
BUN 46 mg/dl (9-20) H 07/01/24 05:45
Creatinine 2.9 mg/dL (0.7-1.3) H 07/01/24 05:45
eGFR 23.42 07/01/24 05:45
Glucose 89 mg/dl (70-99) 07/01/24 05:45
Calcium 9.1 mg/dl (8.4-10.2) 07/01/24 05:45
Kce-D-Ziuasarvfjr Pept 5250 pg/ml 06/26/24 18:29
Albumin 3.4 g/dl (3.5-5.0) L 06/27/24 06:00
Physical Exam
-
Vital Signs:
Vital Signs
Temp Pulse Resp BP Pulse Ox
97.6 F 82 16 123/74 98
07/01/24 07:55 07/01/24 07:55 07/01/24 07:55 07/01/24 07:55 07/01/24 07:58
Cardiovascular:: Regular rate and rhythm
Respiratory:: Bilateral: CTA
Lung Excursion:: Normal
Abdomen:: Nontender and Soft
Bowel Sounds:: Normal
Extremity Edema:: None: Bilateral:
--- NOTE | 2024-07-01 16:08 | PTCARENOTE ---
Pt AAO x3, SANTORO well, ambulatory in room/OOB to chair; ester well. VSS; BP currently 178/78 via manual assessment.. On room air- pulse ox 98%, no SOB noted. Abd large, soft, ester PO well; pt aware of NPO past midnight for IR procedure on 07/02.
Voiding in BR without difficulty. Resting in chair at present, no c/o. Will continue to monitor.
[2024-07-01] MEDS: APRESOLINE 5 MG PO ×2 (17:07→23:01)
--- NOTE | 2024-07-01 18:19 | PTCARENOTE ---
Pt's BP remains elevated 178/89 after prn Hydralazine dose given, pt denies sx. Dr. Zhu notified. Will continue to monitor.
[2024-07-01] MEDS: CARDURA 8 MG PO (20:42)
[2024-07-01] MEDS: COLACE PO (21:06)
[2024-07-02] VITALS (19 sets, daily range): BP systolic 61–214; BP diastolic 68–105; PULSE 70–80; BMI 30.4
[2024-07-02 00:05] LABS: Complement C3 118 mg/dl (88-165)
--- NOTE | 2024-07-02 03:17 | PTCARENOTE ---
Addendum entered by Idania Sweet 07/02/24 05:29:
BP remains elevated 198/104 HR 71- house SEWING MACHINE OPERATOR PLASTIC ZIPPER aware pt given 5 mg IV labetalol.
Original Note:
1920: Pts BP 182/93 pt given coreg, rechecked at 2042 204/82 HR 80- house SEWING MACHINE OPERATOR PLASTIC ZIPPER aware order to give PO cardura 8 mg PO and 50 mg PO hydralazine early. Given per order. Rechecked BP 2301- 184/101- PO hydralazine PRN given 5 mg. Rechecked at 0125 BP
174/91 HR 79- House SEWING MACHINE OPERATOR PLASTIC ZIPPER aware order to recheck BP at 0500.
[2024-07-02] MEDS: TRANDATE 5 MG IV (05:22)
[2024-07-02 07:24] LABS: Hematocrit 34.4 % (39.0-52.0); Hemoglobin 11.9 g/dL (13.0-18.0); Mean Corp Hgb Conc. 34.6 g/dL (33.0-37.0); Mean Corpuscular Hgb 30.1 pg (27.0-31.0); Mean Corpuscular Volume 87.1 fL (80.0-94.0); Mean Platelet Volume 10.1 fL (7.4-10.4); Platelet Count 187 10^3/uL (130-400); Red Blood Cell Count 3.95 10^6/uL (4.70-6.10); Red Cell Dist. Width 12.3 % (11.5-14.5); White Blood Cell Count 4.8 10^3/uL (4.8-10.8)
[2024-07-02] MEDS: PROCARDIA XL (EXTENDED RELEASE) 90 MG PO (07:57)
[2024-07-02] MEDS: IMDUR (EXTENDED RELEASE) 30 MG PO (07:57)
[2024-07-02] MEDS: APRESOLINE 50 MG PO ×3 (07:59→23:38)
[2024-07-02] MEDS: COREG 3.125 MG PO ×2 (07:59→20:28)
[2024-07-02] MEDS: COLACE PO ×2 (08:01→20:23)
[2024-07-02 08:26] LABS: Blood Urea Nitrogen 49 mg/dl (9-20); Calcium 8.8 mg/dl (8.4-10.2); Carbon Dioxide 27 mmol/L (22-30); Chloride 105 mmol/L (98-107); Estimated Creatinine Clearance 24 ml/min; Glucose 87 mg/dl (70-99); Potassium 4.8 mmol/L (3.5-5.1); Sodium 141 mmol/L (135-145); eGFR 21.62
--- NOTE | 2024-07-02 08:37 | W.PN.HOSP.TC ---
Today's Communication/Plan
-
Blood pressure very high with SBP 200+ this morning
Nifedipine at night for better blood control
Kidney Biopsy today
Assessment / Plan
Assessment / Plan
Physical Exam
General: Not in acute distress
HEENT: Normocephalic
Respiratory: CTAB
Cardiac: S1/S2 and Regular Rhythm
GI: Soft, Non Tender and Non Distended. Positive bowel sounds.
Musculoskeletal: No Cyanosis. Edema, Left Lower Extremity (trace) and Edema, Right Lower Extremity (trace)
Skin: Warm and Dry
Neuro: Awake, Alert, Oriented and AO x 3
Psych: Calm
Assessment/Plan
#Hypertensive crisis -Resolved
- Primary hypertension, poorly controlled in OP setting
Still uncontrolled earlier today but seems to improve with meds. He had Sinus tachy upon ambulation, EKG SR, negative orthostatic hypotension, Dr. Thompson d/w manager part, started Coreg
Amlodipine was previously stopped and patient was started on Nifedipine.
C/W BID hydralazine with Imdur.
Continue Doxazosin.
Monitored blood pressure and adjust medications
Check aldosterone to renin ratio
#Acute nonischemic myocardial injury in the setting of hypertensive crisis superimposed on CKD.
No chest pain
Echocardiogram no wall motion abnormality
Appreciate cardiology input
# Suspect underlying chronic kidney disease stage IV
Creatinine stable around 3
d/w nephrology , renal biopsy took place today
Creatinine 1.7 in 2021
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 He would like to establish care locally.
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
Urine analysis showed + albumin
Renal ultrasound Showed asymmetric left renal cortical atrophy. Generalized renal cortical echotexture, suggesting underlying medical renal disease. No shadowing calculus or hydronephrosis, bilaterally.
Appreciate nephrology input
#Mild hyperbilirubinemia. No abdominal pain or nausea or vomiting
#Obesity - may exacerbate BP control
Hemoglobin A1c 5.4
full code
VCD for DVTp add subcu heparin, he refuses heparin
Anticipated Discharge: Within 24 hours
Subjective/Interval History
-
Date of Service: July 02, 2024
Patient was seen and examined. He denied any new symptoms or complaints.
Objective Data
-
Labs:
Laboratory Results
07/02/24
06:08
WBC 4.8
Hgb 11.9 L
Hct 34.4 L
Plt Count 187
Sodium 141
Potassium 4.8
Chloride 105
Carbon Dioxide 27
BUN 49 H
Creatinine 3.1 H
Glucose 87
Calcium 8.8
Vital Signs:
Vital Signs
Temp Pulse Resp BP Pulse Ox
98.0 F 73 18 214/106 98
07/02/24 07:25 07/02/24 07:57 07/02/24 07:25 07/02/24 07:57 07/02/24 07:25
I&O
07/01/24 07/02/24 07/03/24
06:59 06:59 06:59
Intake Total 960 / 960 860 / 860
Balance 960 / 960 860 / 860
--- NOTE | 2024-07-02 16:21 | W.PN.NEPH.PH ---
Today's Communication / Plan
-
see plan
Assessment/Plan
-
Assessment
Hypertension/hypertensive urgency
HALINA
CKD stage unknown
Weakness
Elevated troponin
Plan
HALINA-Creatinine up at 3.1 (has been 2.9-3.1 range since admit)
checked urine prot/creat ratio: 3.7grams
mildly asymmetric kidneys, though does not explain current function, no sig renal art stenosis
Records from May 2023 reviewed: Creatinine was 1.75 with urinalysis of 3+ proteinuria
Underlying kidney disease is rapidly advancing, s/p K biopsy today
pending serologies , complements normal
ASA has been suspended
HTN-high at night, likely add Pm nifedipine if needed, cont current meds
Increased hydralazine to 50 mg 3 times 07/01 in addition to nifedipine, doxazosin and carvedilol for hypertension, check ARR
Case discussed with patient
d/w daughters at bedside and they seem to focused on transplant eval, I tried to educate them that it is meant for advanced CKD, ESRD status and not for HALINA
out current goal is to see if there is any reversibility of renal function
d/w nursing
-
-
Date of Service: July 02, 2024
CC / HPI / ROS
-
Chief Complaint:
HALINA
History of Present Illness:
HALINA/Cr to 3.1
BP high at night time
3.7 g of proteinuria
wt decreasing slowly
Review of Systems:
no CP/SOB
Nonoliguric
no abd pain , did not urinate yet post biopsy
Labs
-
Labs:
WBC 4.8 10^3/uL (4.8-10.8) 07/02/24 06:08
RBC 3.95 10^6/uL (4.70-6.10) L 07/02/24 06:08
Plt Count 187 10^3/uL (130-400) 07/02/24 06:08
Sodium 141 mmol/L (135-145) 07/02/24 06:08
Potassium 4.8 mmol/L (3.5-5.1) 07/02/24 06:08
Chloride 105 mmol/L (98-107) 07/02/24 06:08
Carbon Dioxide 27 mmol/L (22-30) 07/02/24 06:08
BUN 49 mg/dl (9-20) H 07/02/24 06:08
Creatinine 3.1 mg/dL (0.7-1.3) H 07/02/24 06:08
eGFR 21.62 07/02/24 06:08
Glucose 87 mg/dl (70-99) 07/02/24 06:08
Calcium 8.8 mg/dl (8.4-10.2) 07/02/24 06:08
Aes-Z-Gdrkodlvnhj Pept 5250 pg/ml 06/26/24 18:29
Albumin 3.4 g/dl (3.5-5.0) L 06/27/24 06:00
Physical Exam
-
Vital Signs:
Vital Signs
Temp Pulse Resp BP Pulse Ox
97.8 F 78 18 156/74 98
07/02/24 16:06 07/02/24 16:06 07/02/24 16:06 07/02/24 16:06 07/02/24 15:50
Cardiovascular:: Regular rate and rhythm
Respiratory:: Bilateral: CTA
Lung Excursion:: Normal
Abdomen:: Nontender and Soft
Extremity Edema:: None: Bilateral:
Farnsworth Catheter: No
--- NOTE | 2024-07-02 18:26 | PTCARENOTE ---
After coming back from kidney biopsy this patient has voided 400cc of yellow urine. No blood, clots were noted. Pt deneis any pain or discomfort. VSS are stable.
[2024-07-02 18:44] LABS: Hematocrit 34.5 % (39.0-52.0); Hemoglobin 12.5 g/dL (13.0-18.0)
[2024-07-02] MEDS: CARDURA 8 MG PO (20:25)
[2024-07-02] MEDS: PROCARDIA XL (EXTENDED RELEASE) 30 MG PO (20:29)
[2024-07-03 01:25] LABS: ANA, IgG Reflex to HEp-2 None Detected (None Detected)
[2024-07-03 03:05] VITALS: BP 145/75
--- NOTE | 2024-07-03 04:00 | PTCARENOTE ---
Site checks to right kidney biopsy site WNL. No bleeding or hematoma noted. Bandaid CDI. Patient denies pain, states it feels 'slightly tender'. Plan of care ongoing.
[2024-07-03 07:30] VITALS: BP 153/81
[2024-07-03 09:03] LABS: Hematocrit 34.1 % (39.0-52.0); Hemoglobin 11.9 g/dL (13.0-18.0); Mean Corp Hgb Conc. 34.9 g/dL (33.0-37.0); Mean Corpuscular Hgb 30.1 pg (27.0-31.0); Mean Corpuscular Volume 86.3 fL (80.0-94.0); Mean Platelet Volume 9.8 fL (7.4-10.4); Platelet Count 182 10^3/uL (130-400); Red Blood Cell Count 3.95 10^6/uL (4.70-6.10); Red Cell Dist. Width 12.3 % (11.5-14.5); White Blood Cell Count 5.1 10^3/uL (4.8-10.8)
[2024-07-03 09:04] LABS: Blood Urea Nitrogen 50 mg/dl (9-20); Calcium 8.8 mg/dl (8.4-10.2); Carbon Dioxide 22 mmol/L (22-30); Chloride 106 mmol/L (98-107); Estimated Creatinine Clearance 24 ml/min; Glucose 88 mg/dl (70-99); Potassium 4.7 mmol/L (3.5-5.1); Sodium 141 mmol/L (135-145); eGFR 22.49
[2024-07-03] MEDS: APRESOLINE 50 MG PO ×3 (09:05→20:20)
[2024-07-03] MEDS: IMDUR (EXTENDED RELEASE) 30 MG PO (09:05)
[2024-07-03] MEDS: PROCARDIA XL (EXTENDED RELEASE) 90 MG PO (09:05)
[2024-07-03] MEDS: COREG 3.125 MG PO ×3 (09:06→21:48)
[2024-07-03] MEDS: COLACE 100 MG PO (09:06)
[2024-07-03 11:35] VITALS: BP 156/76
--- NOTE | 2024-07-03 14:11 | W.PN.NEPH.PH ---
Today's Communication / Plan
-
increase BB
Assessment/Plan
-
Assessment
Hypertension/hypertensive urgency
HALINA
CKD stage unknown
Weakness
Elevated troponin
Plan
HALINA-Creatinine stable 3 (has been 2.9-3.1 range since admit)
checked urine prot/creat ratio: 3.7grams
mildly asymmetric kidneys, though does not explain current function, no sig renal art stenosis
Records from May 2023 reviewed: Creatinine was 1.75 with urinalysis of 3+ proteinuria
Underlying kidney disease is rapidly advancing, s/p K biopsy 07/02, await for report
pending serologies , complements normal
ASA has been suspended
HTN-improving but sub optimal, will increase BB
cont hydralazine, nifedipine, doxazosin , pending ARR
d/c plan based on biopsy report
d/w family at bedside
-
-
Date of Service: July 03, 2024
CC / HPI / ROS
-
Chief Complaint:
HALINA
History of Present Illness:
HALINA/Cr to 3
BP better , sub optimal still
3.7 g of proteinuria
wt decreasing slowly
Review of Systems:
no CP/SOB
Nonoliguric
no abd pain
no hematuria
Labs
-
Labs:
WBC 5.1 10^3/uL (4.8-10.8) 07/03/24 06:56
RBC 3.95 10^6/uL (4.70-6.10) L 07/03/24 06:56
Hgb 11.9 g/dL (13.0-18.0) L 07/03/24 06:56
Hct 34.1 % (39.0-52.0) L 07/03/24 06:56
Plt Count 182 10^3/uL (130-400) 07/03/24 06:56
Sodium 141 mmol/L (135-145) 07/03/24 06:56
Potassium 4.7 mmol/L (3.5-5.1) 07/03/24 06:56
Chloride 106 mmol/L (98-107) 07/03/24 06:56
Carbon Dioxide 22 mmol/L (22-30) 07/03/24 06:56
BUN 50 mg/dl (9-20) H 07/03/24 06:56
Creatinine 3.0 mg/dL (0.7-1.3) H 07/03/24 06:56
eGFR 22.49 07/03/24 06:56
Glucose 88 mg/dl (70-99) 07/03/24 06:56
Calcium 8.8 mg/dl (8.4-10.2) 07/03/24 06:56
Noy-Z-Fzoklvwgvjx Pept 5250 pg/ml 06/26/24 18:29
Albumin 3.4 g/dl (3.5-5.0) L 06/27/24 06:00
Physical Exam
-
Vital Signs:
Vital Signs
Temp Pulse Resp BP Pulse Ox
98.0 F 75 18 156/76 93
07/03/24 11:35 07/03/24 11:35 07/03/24 11:35 07/03/24 11:35 07/03/24 11:35
Cardiovascular:: Regular rate and rhythm
Respiratory:: Bilateral: CTA
Lung Excursion:: Normal
Abdomen:: Nontender and Soft
Extremity Edema:: None: Bilateral:
Farnsworth Catheter: No
[2024-07-03 15:20] VITALS: BP 154/76
--- NOTE | 2024-07-03 17:05 | CM ---
Pt has good family support.
Pt had biopsy yesterday.
Offered Vn He declined need.
PLAN Home with no needs
--- NOTE | 2024-07-03 17:22 | W.PN.HOSP.TC ---
Today's Communication/Plan
-
Spoke with nephrology who recommended discharge tomorrow, not today, to see whether kidney biopsy will be available by tomorrow
Assessment / Plan
Assessment / Plan
Physical Exam
General: Not in acute distress
HEENT: Normocephalic
Respiratory: CTAB
Cardiac: S1/S2 and Regular Rhythm
GI: Soft, Non Tender and Non Distended. Positive bowel sounds.
Musculoskeletal: No Cyanosis. Edema, Left Lower Extremity (trace) and Edema, Right Lower Extremity (trace)
Skin: Warm and Dry
Neuro: Awake, Alert, Oriented and AO x 3
Psych: Calm
Assessment/Plan
#Hypertensive crisis -Resolved
- Primary hypertension, poorly controlled in OP setting
Amlodipine was previously stopped and patient was started on Nifedipine.
C/W BID hydralazine with Imdur.
Continue Doxazosin.
Monitored blood pressure and adjust medications
Follow-up on aldosterone to renin ratio
Follow-up on renal biopsy
#Acute nonischemic myocardial injury in the setting of hypertensive crisis superimposed on CKD.
No chest pain
Echocardiogram no wall motion abnormality
Appreciate cardiology input
# Suspect underlying chronic kidney disease stage IV
Creatinine stable around 3
d/w nephrology , renal biopsy took place today
Creatinine 1.7 in 2021
Patient has history of kidney disease but does not follow with retention specialist. He would like to establish care locally.
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
Urine analysis showed + albumin
Renal ultrasound Showed asymmetric left renal cortical atrophy. Generalized renal cortical echotexture, suggesting underlying medical renal disease. No shadowing calculus or hydronephrosis, bilaterally.
Appreciate nephrology input
#Mild hyperbilirubinemia. No abdominal pain or nausea or vomiting
#Obesity - may exacerbate BP control
Hemoglobin A1c 5.4
full code
VCD for DVTp add subcu heparin, he refused heparin
Anticipated Discharge: Within 24 hours
Subjective/Interval History
-
Date of Service: July 03, 2024
Patient was seen and examined. He denied any complaints.
Objective Data
-
Labs:
Laboratory Results
07/03/24
06:56
WBC 5.1
Hgb 11.9 L
Hct 34.1 L
Plt Count 182
Sodium 141
Potassium 4.7
Chloride 106
Carbon Dioxide 22
BUN 50 H
Creatinine 3.0 H
Glucose 88
Calcium 8.8
Vital Signs:
Vital Signs
Temp Pulse Resp BP Pulse Ox
98.1 F 77 18 154/76 94
07/03/24 15:20 07/03/24 16:23 07/03/24 15:20 07/03/24 16:23 07/03/24 15:20
I&O
07/02/24 07/03/24 07/04/24
06:59 06:59 06:59
Intake Total 860 / 860 720 / 720
Output Total 890 / 890
Balance 860 / 860 -170 / -170
[2024-07-03] MEDS: COLACE PO (20:19)
[2024-07-03] MEDS: CARDURA 8 MG PO (20:19)
[2024-07-03] MEDS: PROCARDIA XL (EXTENDED RELEASE) 30 MG PO (20:22)
[2024-07-03 21:57] LABS: Myeloperoxidase Antibody 0 AU/mL (0-19); Serine Protease-3, IgG 0 AU/mL (0-19)
[2024-07-03 23:00] VITALS: BP 143/76
[2024-07-04 06:00] VITALS: BMI 30.3
[2024-07-04 07:41] VITALS: BP 161/90
[2024-07-04] MEDS: PROCARDIA XL (EXTENDED RELEASE) 90 MG PO (07:44)
[2024-07-04] MEDS: IMDUR (EXTENDED RELEASE) 30 MG PO (07:44)
[2024-07-04] MEDS: COREG 6.25 MG PO (07:44)
[2024-07-04] MEDS: APRESOLINE 50 MG PO (07:45)
[2024-07-04] MEDS: COLACE PO (07:45)
[2024-07-04 10:12] LABS: Albumin 3.67 g/dL (3.75-5.01); Alpha 1 Globulin 0.28 g/dL (0.19-0.46); Alpha 2 Globulin 0.91 g/dL (0.48-1.05); SPEP IFE Reflex Not Done; Total Protein-Electrophoresis 6.3 g/dL (6.3-8.2)
[2024-07-04 10:57] LABS: Blood Urea Nitrogen 46 mg/dl (9-20); Calcium 8.8 mg/dl (8.4-10.2); Carbon Dioxide 25 mmol/L (22-30); Chloride 101 mmol/L (98-107); Estimated Creatinine Clearance 24 ml/min; Glucose 145 mg/dl (70-99); Potassium 4.6 mmol/L (3.5-5.1); Sodium 137 mmol/L (135-145); eGFR 21.62
--- NOTE | 2024-07-04 11:32 | W.PN.NEPH.PH ---
Today's Communication / Plan
-
increase hydralazine
Assessment/Plan
-
Assessment
Hypertension/hypertensive urgency
HALINA
CKD stage unknown
Weakness
Elevated troponin
Plan
follow BMP
awaiting bx report
he could be discharged given stability of Cr.
he is trying to make appt with Dr.Chris Fairbanks at [facility] for nephro f/u (close to home)
we will fax bx report to him when available
increase hydralazine
dc planning
-
-
Date of Service: July 04, 2024
CC / HPI / ROS
-
Chief Complaint:
HALINA
History of Present Illness:
HALINA/Cr to 3.1 stable
BP high stable on multidrug regimen
3.7 g of proteinuria
Review of Systems:
no CP/SOB
Nonoliguric
no abd pain
no hematuria
Labs
-
Labs:
WBC 5.1 10^3/uL (4.8-10.8) 07/03/24 06:56
RBC 3.95 10^6/uL (4.70-6.10) L 07/03/24 06:56
Hgb 11.9 g/dL (13.0-18.0) L 07/03/24 06:56
Hct 34.1 % (39.0-52.0) L 07/03/24 06:56
Plt Count 182 10^3/uL (130-400) 07/03/24 06:56
Sodium 137 mmol/L (135-145) 07/04/24 09:16
Potassium 4.6 mmol/L (3.5-5.1) 07/04/24 09:16
Chloride 101 mmol/L (98-107) 07/04/24 09:16
Carbon Dioxide 25 mmol/L (22-30) 07/04/24 09:16
BUN 46 mg/dl (9-20) H 07/04/24 09:16
Creatinine 3.1 mg/dL (0.7-1.3) H 07/04/24 09:16
eGFR 21.62 07/04/24 09:16
Glucose 145 mg/dl (70-99) H 07/04/24 09:16
Calcium 8.8 mg/dl (8.4-10.2) 07/04/24 09:16
Idp-S-Yqlswrkpfvk Pept 5250 pg/ml 06/26/24 18:29
Albumin 3.4 g/dl (3.5-5.0) L 06/27/24 06:00
Physical Exam
-
Vital Signs:
Vital Signs
Temp Pulse Resp BP Pulse Ox
97.7 F 74 16 161/90 98
07/04/24 07:41 07/04/24 07:41 07/04/24 07:41 07/04/24 07:41 07/04/24 08:00
Cardiovascular:: Regular rate and rhythm
Respiratory:: Bilateral: CTA
Lung Excursion:: Normal
Abdomen:: Nontender and Soft
Bowel Sounds:: Normal
Extremity Edema:: None: Bilateral:
--- NOTE | 2024-07-04 12:11 | W.PN.HOSP.TC ---
Today's Communication/Plan
-
Discharge today
Assessment / Plan
Assessment / Plan
Physical Exam
General: Not in acute distress
HEENT: Normocephalic
Respiratory: CTAB
Cardiac: S1/S2 and Regular Rhythm
GI: Soft, Non Tender and Non Distended. Positive bowel sounds.
Musculoskeletal: No Cyanosis. Edema, Left Lower Extremity (trace) and Edema, Right Lower Extremity (trace)
Skin: Warm and Dry
Neuro: Awake, Alert, Oriented and AO x 3
Psych: Calm
Assessment/Plan
#Hypertensive crisis -Resolved
- Primary hypertension, poorly controlled in OP setting
Amlodipine was previously stopped and patient was started on Nifedipine.
C/W BID hydralazine with Imdur.
Continue Doxazosin.
Monitored blood pressure and adjust medications
Follow-up on aldosterone to renin ratio
Follow-up on renal biopsy
#Acute nonischemic myocardial injury in the setting of hypertensive crisis superimposed on CKD.
No chest pain
Echocardiogram no wall motion abnormality
Appreciate cardiology input
# Suspect underlying chronic kidney disease stage IV
Creatinine stable around 3
d/w nephrology , renal biopsy took place today
Creatinine 1.7 in 2021
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 He would like to establish care locally.
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
Urine analysis showed + albumin
Renal ultrasound Showed asymmetric left renal cortical atrophy. Generalized renal cortical echotexture, suggesting underlying medical renal disease. No shadowing calculus or hydronephrosis, bilaterally.
Appreciate nephrology input
#Mild hyperbilirubinemia. No abdominal pain or nausea or vomiting
#Obesity - may exacerbate BP control
Hemoglobin A1c 5.4
full code
VCD for DVTp add subcu heparin, he refused heparin
More than 30 minutes spent in discharge including
Final examination of the patient
Summarizing hospital stay
Instructions for continuing care to all relevant caregivers
Preparation of discharge records, prescriptions, and referral forms
Total time spent (in minutes): 38
Anticipated Discharge: Today
Subjective/Interval History
-
Date of Service: July 04, 2024
Patient was seen and examined. He denied any headache, or any other symptoms or complaints.
Objective Data
-
Labs:
Laboratory Results
07/04/24
09:16
Sodium 137
Potassium 4.6
Chloride 101
Carbon Dioxide 25
BUN 46 H
Creatinine 3.1 H
Glucose 145 H
Calcium 8.8
Vital Signs:
Vital Signs
Temp Pulse Resp BP Pulse Ox
97.7 F 74 16 161/90 98
07/04/24 07:41 07/04/24 07:41 07/04/24 07:41 07/04/24 07:41 07/04/24 08:00
I&O
07/03/24 07/04/24 07/05/24
06:59 06:59 06:59
Intake Total 720 / 720 960 / 960
Output Total 890 / 890
Balance -170 / -170 960 / 960
--- NOTE | 2024-07-04 14:51 | W.DCSUMMARY ---
Discharge Summary
Discharge Data
Date of Admission: 06/26/24
Date of Discharge: 07/04/24
Total time spent discharging patient (in min): 38
-
Pending Results: No
Hospital Course
64 y/o male with past medical history of hypertension and kidney issues involving aspergillus in his kidneys who presented for evaluation of waking up 2 nights ago with shortness of breath and with raspy breathing sound. Patient was admitted with
hypertensive emergency, home antihypertensive regimen was adjusted and Imdur and Hydralazine were added. Cardiology and Nephrology were consulted. Echocardiogram was done which showed normal let ventricular ejection fraction and no significant
valvulopathy. Patient had kidney biopsy performed during the hospitalization. Patient's blood pressure was better controlled and nephrology team would send him his biopsy results once available.
Discharge Plan
-
Patient Disposition: Home (Routine Discharge)
Discharge Diagnosis/Procedures: #Hypertensive crisis -Resolved
#Acute non-ischemic myocardial injury in the setting of hypertensive crisis superimposed on CKD.
#Suspect underlying chronic kidney disease stage -- stage unknown
#History of renal aspergillosis status post partial right nephrectomy
#Mild hyperbilirubinemia
#Obesity
Condition: Fair
Diet: Low Fat, Low Cholesterol and Low Sodium
Activity: As tolerated
Activity Restrictions/Additional Instructions:
Follow-up with your primary care physician in 1 to 2 days.
Referrals:
UNKNOWN - PT DOES,NOT KNOW [Family Provider] -
Mar Agnel MD [Active] - in less than 1 week (Hospital Follow-up)
Additional Discharge Medication Instructions: Carvedilol, Hydralazine, Isosorbide Mononitrate, Nifedipine and Docusate are new medications.
Amlodipine has been stopped.
Prescriptions:
New
hydralazine 50 mg Tablet
100 mg PO BID Qty: 120 1RF
docusate sodium 100 mg Capsule
100 mg PO BID Qty: 60 0RF
carvedilol 6.25 mg Tablet
6.25 mg PO BID Qty: 60 1RF
isosorbide mononitrate 30 mg Tablet Extended Release 24 Hr
30 mg PO DAILY Qty: 30 1RF
nifedipine 30 mg Tablet Extended Release
90 mg PO DAILY Qty: 90 1RF
nifedipine 30 mg Tablet Extended Release
30 mg PO HS Qty: 30 1RF
Continued
doxazosin 4 mg Tablet
8 mg PO HS Qty: 60 1RF
Discontinued
amlodipine 10 mg tablet
10 mg PO DAILY
Discharge Orders:
Discharge Patient (As Directed); Ordered 07/04/24
Ordered By: Riky King
Discharge Date and Time
Discharge Date/Time: 07/04/24 15:22
Print Language: MACEDONIAN
--- NOTE | 2024-07-04 15:01 | CM ---
MD entered order for discharge
Pt has good family support.
Offered VN He declined need.
PLAN Home with no needs
[2024-07-06 09:21] LABS: Aldosterone, Serum 32.4 ng/dL; Aldosterone/Renin Activ Ratio 23.1 ratio (<=25.0); Renin Activity Results 1.4 ng/mL/hr
== END 2024-07-04 15:22 | disposition home or self-care (01) | DRG 305 ==
LOC: 4 EAST ACU 22:36
PROVIDERS: Clinical Nurse Specialist Family Health; Emergency Medicine; Internal Medicine; Radiology Vascular & Interventional Radiology; Specialist; ADMITTING PHYSICIAN Internal Medicine; ATTENDING PHYSICIAN Hospitalist; CONSULT PHYSICIAN Internal Medicine; CONSULT PHYSICIAN Specialist; EMERGENCY PHYSICIAN Emergency Medicine
PROC: 0TB03ZX Excision of Right Kidney, Percutaneous Approach, Diagnostic (ICD-10-PCS; 2024-07-02)
DX: I16.1 Hypertensive emergency (principal); N17.9 Acute kidney failure, unspecified; I5A Non-ischemic myocardial injury (non-traumatic); N18.4 Chronic kidney disease, stage 4 (severe); I12.9 Hypertensive chronic kidney disease with stage 1 through stage 4 chronic kidney disease, or unspecified chronic kidney disease; E66.9 Obesity, unspecified; Z68.30 Body mass index [BMI] 30.0-30.9, adult; E80.7 Disorder of bilirubin metabolism, unspecified; I45.10 Unspecified right bundle-branch block; I25.10 Atherosclerotic heart disease of native coronary artery without angina pectoris; R79.89 Other specified abnormal findings of blood chemistry; T46.1X6A Underdosing of calcium-channel blockers, initial encounter; T44.6X6A Underdosing of alpha-adrenoreceptor antagonists, initial encounter; Z91.128 Patient's intentional underdosing of medication regimen for other reason; Z79.899 Other long term (current) drug therapy; Z87.891 Personal history of nicotine dependence; Z82.49 Family history of ischemic heart disease and other diseases of the circulatory system
CPT/HCPCS: 50200; 71046; 76775; 76942; 80048; 80053; 81003; 81015; 82088; 82570; 83036; 83516; 83880; 84155; 84156; 84165; 84244; 84484; 85014; 85018; 85025; 85027; 85610; 86038; 86063; 86160; 93005; 93306; 93975; 96374; 96376; 99152; 99153; 99285